=== PATIENT | female | born 1990 | race Caucasian/White ===

== ENCOUNTER 2016-09-22 13:11 | Emergency (ER) | payer OTHER ==
[2016-09-22] MEDS ORDERED: Nitroglycerin 0.4 MG Tab.SL SL ONE (13:23)
[2016-09-22] MEDS ORDERED: Aspirin 81 MG Tab.Chew PO ONE (13:23)
[2016-09-22] MEDS ORDERED: Sodium Chloride 0.9% 2.5 ML Syringe FLUSH PRN (13:23)
[2016-09-22] MEDS ORDERED: Sodium Chloride 0.9% 10 ML Syringe FLUSH PRN (13:23)
[2016-09-22 13:46] LABS: CHLORIDE,CL 109 mmol/L (98-110); SODIUM,NA 137 mmol/L (136-146)
--- NOTE | 2016-09-22 13:49 | EDM.PDOC ---
ED HPI GENERAL MEDICAL PROBLEM - General Chief Complaint: Cardiovascular Problem Stated Complaint: HEARTBEAT IRREGULAR, LT HAND FINGERS GOING NUMB Time Seen by Provider: 09/22/16 13:20 Source of Information: Reports: Patient History Limitations: Reports: No Limitations - History of Present Illness INITIAL COMMENTS - FREE TEXT/NARRATIVE: History of present illness: [26-year-old female comes in complaining of palpitations and pressure in her chest indicating that she has an extensive familial history of cardiac issues. Patient denies smoking but is such risk as well as obese.] Review of systems: As per history of present illness and below otherwise all systems reviewed and negative. Past medical history: As per history of present illness and as reviewed below otherwise noncontributory. Surgical history: As per history of present illness and as reviewed below otherwise noncontributory. Social history: No reported history of drug or alcohol abuse. Family history: As per history of present illness and as reviewed below otherwise noncontributory. Physical exam: HEENT: Atraumatic, normocephalic, pupils reactive, negative for conjunctival pallor or scleral icterus, mucous membranes moist, throat clear, neck supple, nontender, trachea midline. Lungs: Clear to auscultation, breath sounds equal bilaterally, chest nontender. Heart: S1S2, regular, negative for clicks, rubs, or JVD. Abdomen: Soft, nondistended, nontender. Negative for masses or hepatosplenomegaly. Negative for costovertebral tenderness. Pelvis: Stable nontender. Genitourinary: Deferred. Rectal: Deferred. Extremities: Atraumatic, negative for cords or calf pain. Neurovascular unremarkable. Neuro: Awake, alert, oriented. Cranial nerves II through XII unremarkable. Cerebellum unremarkable. Motor and sensory unremarkable throughout. Exam nonfocal. Patient noted to get hypertensive and tachycardic in the 120s with a narrow pulse pressure, patient given 1 nitroglycerin sublingual blood pressure decreased heart rate dropped into the 70s patient indicates she no longer felt any symptoms. Spoke with Dr. Powers who came to the ER evaluated the patient's chart and indicated the patient could have follow-up with him next week. Diagnostics: [Cardiac workup] Therapeutics: [IV] Impression: [Atypical chest pain] Plan: [Follow-up with cards on Sunday] Definitive disposition and diagnosis as appropriate pending reevaluation and review of above. - Related Data Allergies Allergy/AdvReac Type Severity Reaction Status Date / Time No Known Allergies Allergy Verified 09/22/16 13:14 Home Meds: Home Meds medroxyPROGESTERone [Depo-Provera] 0 mg IM ASDIRECTED 09/22/16 [History] Past Medical History - Past Health History Medical/Surgical History: Denies Medical/Surgical History Social & Family History - Family History Cardiac: Reports: Heart Failure, [place] Endocrine/Metabolic: Reports: Diabetes, type II - Tobacco Use Smoking Status *Q: Current Every Day Smoker Years of Tobacco use: 15 Packs/Tins Daily: 1 - Caffeine Use Caffeine Use: Reports: None - Recreational Drug Use Recreational Drug Use: Yes Drug Use in Last 12 Months: Yes Recreational Drug Type: Reports: Marijuana/Hashish Recreational Drug Use Frequency: Binges ED ROS GENERAL - Review of Systems Review Of Systems: See Below (See history of present illness) ED EXAM, GENERAL - Physical Exam Exam: See Below (History of present illness) Course - Vital Signs Last Recorded V/S: Last Vital Signs Temp 36.6 C 09/22/16 13:21 Pulse 98 09/22/16 15:29 Resp 15 09/22/16 15:29 BP 160/92 H 09/22/16 15:29 Pulse Ox 97 09/22/16 15:29 - Orders/Labs/Meds Orders: Active Orders 24 hr Category Date Time Status Cardiac Monitoring [RC] . DIRECTED Care 09/22/16 13:23 Active EKG Documentation Completion [RC] STAT Care 09/22/16 13:23 Active Pulse Oximetry [RC] ASDIRECTED Care 09/22/16 13:23 Active Chest 1V Frontal [CR] Stat Exams 09/22/16 13:23 Taken HCG QUALITATIVE,URINE [URCHEM] Stat Lab 09/22/16 13:23 Uncollected UA W/MICROSCOPIC [URIN] Stat Lab 09/22/16 13:23 Uncollected Sodium Chloride 0.9% [Saline Flush] Med 09/22/16 13:23 Active 10 ml FLUSH ASDIRECTED PRN Sodium Chloride 0.9% [Saline Flush] Med 09/22/16 13:23 Active 2.5 ml FLUSH ASDIRECTED PRN Saline Lock Insert [OM.PC] Stat Oth 09/22/16 13:23 Ordered Medication Orders Sodium Chloride (Saline Flush) 10 ml FLUSH ASDIRECTED PRN PRN Reason: Keep Vein Open Last Admin: 09/22/16 13:36 Dose: 10 ml Sodium Chloride (Saline Flush) 2.5 ml FLUSH ASDIRECTED PRN PRN Reason: Keep Vein Open Last Admin: 09/22/16 13:36 Dose: 2.5 ml Labs: Laboratory Tests 09/22/16 09/22/16 09/22/16 Range/Units 13:18 13:18 13:18 WBC 9.00 (4.0-11.0) K/uL RBC 5.23 (4.30-5.90) M/uL Hgb 14.8 (12.0-16.0) g/dL Hct 43.6 (36.0-46.0) % MCV 83.4 (80.0-98.0) fL MCH 28.3 (27.0-32.0) pg MCHC 33.9 (31.0-37.0) g/dL RDW Std Deviation 41.1 (28.0-62.0) fl RDW Coeff of Mandy 14 (11.0-15.0) % Plt Count 223 (150-400) K/uL MPV 10.90 (7.40-12.00) fL Neut % (Auto) 60.1 (48.0-80.0) % Lymph % (Auto) 35.1 (16.0-40.0) % Boyle % (Auto) 4.3 (0.0-15.0) % Eos % (Auto) 0.4 (0.0-7.0) % Baso % (Auto) 0.1 (0.0-1.5) % Neut # (Auto) 5.4 (1.4-5.7) K/uL Lymph # (Auto) 3.2 H (0.6-2.4) K/uL Boyle # (Auto) 0.4 (0.0-0.8) K/uL Eos # (Auto) 0.0 (0.0-0.7) K/uL Baso # (Auto) 0.0 (0.0-0.1) K/uL Nucleated RBC % 0.0 /100WBC Nucleated RBCs # 0 K/uL INR 1.01 (0.86-1.11) Sodium 137 (136-146) mmol/L Potassium 3.7 (3.5-5.1) mmol/L Chloride 109 (98-110) mmol/L Carbon Dioxide 19 L (21-31) mmol/L BUN 11 (6.0-23.0) mg/dL Creatinine 0.9 (0.6-1.5) mg/dL Est Cr Clr Drug Dosing 100.64 mL/min Estimated GFR (MDRD) > 60.0 ml/min Glucose 137 H (60-110) mg/dL Calcium 9.1 (8.8-10.8) mg/dL Total Bilirubin 0.6 (0.1-1.5) mg/dL AST 18 (5-40) IU/L ALT 20 (8-54) IU/L Alkaline Phosphatase 78 (40-150) Troponin I (0.0-0.29) NG/ML Total Protein 8.0 (6.0-8.0) g/dL Albumin 4.2 (3.5-5.0) g/dL Globulin 3.8 H (2.0-3.5) g/dL Albumin/Globulin Ratio 1.1 L (1.3-2.8) // Range/Units 13:18 WBC (4.0-11.0) K/uL RBC (4.30-5.90) M/uL Hgb (12.0-16.0) g/dL Hct (36.0-46.0) % MCV (80.0-98.0) fL MCH (27.0-32.0) pg MCHC (31.0-37.0) g/dL RDW Std Deviation (28.0-62.0) fl RDW Coeff of Mandy (11.0-15.0) % Plt Count (150-400) K/uL MPV (7.40-12.00) fL Neut % (Auto) (48.0-80.0) % Lymph % (Auto) (16.0-40.0) % Boyle % (Auto) (0.0-15.0) % Eos % (Auto) (0.0-7.0) % Baso % (Auto) (0.0-1.5) % Neut # (Auto) (1.4-5.7) K/uL Lymph # (Auto) (0.6-2.4) K/uL Boyle # (Auto) (0.0-0.8) K/uL Eos # (Auto) (0.0-0.7) K/uL Baso # (Auto) (0.0-0.1) K/uL Nucleated RBC % /100WBC Nucleated RBCs # K/uL INR (0.86-1.11) Sodium (136-146) mmol/L Potassium (3.5-5.1) mmol/L Chloride (98-110) mmol/L Carbon Dioxide (21-31) mmol/L BUN (6.0-23.0) mg/dL Creatinine (0.6-1.5) mg/dL Est Cr Clr Drug Dosing mL/min Estimated GFR (MDRD) ml/min Glucose (60-110) mg/dL Calcium (8.8-10.8) mg/dL Total Bilirubin (0.1-1.5) mg/dL AST (5-40) IU/L ALT (8-54) IU/L Alkaline Phosphatase (40-150) Troponin I < 0.10 (0.0-0.29) NG/ML Total Protein (6.0-8.0) g/dL Albumin (3.5-5.0) g/dL Globulin (2.0-3.5) g/dL Albumin/Globulin Ratio (1.3-2.8) Meds: Medications Generic Name Dose Route Start Last Admin Trade Name Freq PRN Reason Stop Dose Admin Sodium Chloride 10 ml 09/22/16 13:23 09/22/16 13:36 Saline Flush FLUSH 10 ml ASDIRECTED PRN Administration Keep Vein Open Sodium Chloride 2.5 ml 09/22/16 13:23 09/22/16 13:36 Saline Flush FLUSH 2.5 ml ASDIRECTED PRN Administration Keep Vein Open Discontinued Medications Generic Name Dose Route Start Last Admin Trade Name Freq PRN Reason Stop Dose Admin Aspirin 324 mg 09/22/16 13:23 09/22/16 13:35 Aspirin PO 09/22/16 13:24 324 mg ONETIME ONE Administration Nitroglycerin 0.4 mg 09/22/16 13:23 09/22/16 14:25 Nitrostat SL 09/22/16 13:24 0.4 mg ONETIME ONE Administration Departure - Departure Time of Disposition: 15:33 Disposition: Home, Self-Care 01 Condition: Good Clinical Impression: Palpitations, Hypertensive heart disease Forms: ED Department Discharge Additional Instructions: The following information is given to patients seen in the emergency department who are being discharged to home. This information is to outline your options for follow-up care. We provide all patients seen in our emergency department with a follow-up referral. The need for follow-up, as well as the timing and circumstances, are variable depending upon the specifics of your emergency department visit. If you don't have a primary care physician on staff, we will provide you with a referral. We always advise you to contact your personal physician following an emergency department visit to inform them of the circumstance of the visit and for follow-up with them and/or the need for any referrals to a consulting specialist. The emergency department will also refer you to a specialist when appropriate. This referral assures that you have the opportunity for follow-up care with a specialist. All of these measure are taken in an effort to provide you with optimal care, which includes your follow-up. Under all circumstances we always encourage you to contact your private physician who remains a resource for coordinating your care. When calling for follow-up care, please make the office aware that this follow-up is from your recent emergency room visit. If for any reason you are refused follow-up, please contact the [facility] Emergency Department at and asked to speak to the emergency department charge nurse. Follow-up with your appointment with cardiology Sunday Return to ED as needed as discussed - My Orders Last 24 Hours: My Active Orders 09/22/16 13:23 Cardiac Monitoring [RC] . DIRECTED EKG Documentation Completion [RC] STAT Pulse Oximetry [RC] ASDIRECTED Chest 1V Frontal [CR] Stat HCG QUALITATIVE,URINE [URCHEM] Stat UA W/MICROSCOPIC [URIN] Stat Sodium Chloride 0.9% [Saline Flush] 10 ml FLUSH ASDIRECTED PRN Sodium Chloride 0.9% [Saline Flush] 2.5 ml FLUSH ASDIRECTED PRN Saline Lock Insert [OM.PC] Stat - Assessment/Plan Last 24 Hours: My Active Orders 09/22/16 13:23 Cardiac Monitoring [RC] . DIRECTED EKG Documentation Completion [RC] STAT Pulse Oximetry [RC] ASDIRECTED Chest 1V Frontal [CR] Stat HCG QUALITATIVE,URINE [URCHEM] Stat UA W/MICROSCOPIC [URIN] Stat Sodium Chloride 0.9% [Saline Flush] 10 ml FLUSH ASDIRECTED PRN Sodium Chloride 0.9% [Saline Flush] 2.5 ml FLUSH ASDIRECTED PRN Saline Lock Insert [OM.PC] Stat
[2016-09-22 15:30] VITALS: BP 160/92
--- NOTE | 2016-09-25 09:09 | CR ---
EXAM DATE: 09/22/16 PATIENT'S AGE: 26 Patient: NURIA GONZALEZ Facility: [place], [place] Site . Site : 1990 Study: XRay Chest [id number]/[id number] 2:18:01 PM Ordering Physician: Doctor Isaacs Final Report: HISTORY: Chest pain. FINDINGS: AP portal chest radiograph demonstrates a normal cardiac silhouette. Pulmonary vasculature and yoko are normal. No lobar consolidation or pleural effusion is seen. No pneumothorax. IMPRESSION: No acute cardiopulmonary disease. Dictated by Betina Camejo MD @ 09/22/2016 2:51:51 PM Dictated by: Betina Camejo MD @ 09/22/2016 14:52:02 (Electronic Signature) Report Signed by Proxy. [facility]ITAL[facility]io
== END 2016-09-22 15:48 | disposition home or self-care (01) ==
LOC: MW.ED 13:11
DX: I11.9 Hypertensive heart disease without heart failure (principal); R00.2 Palpitations; R00.0 Tachycardia, unspecified; R07.89 Other chest pain; F17.210 Nicotine dependence, cigarettes, uncomplicated
CPT/HCPCS: 71010; 80053; 84484; 85025; 85610; 93005; 99285; A9270; 99282

== ENCOUNTER 2021-03-10 07:07 | Emergency (ER) | payer OTHER ==
--- NOTE | 2021-03-10 07:20 | EDM.PDOC ---
ED HPI GENERAL MEDICAL PROBLEM - General Chief Complaint: Upper Extremity Injury/Pain Stated Complaint: POSSIBLE BROKEN LEFT WRIST Time Seen by Provider: 03/10/21 07:11 - History of Present Illness INITIAL COMMENTS - FREE TEXT/NARRATIVE: History of present illness: [] Patient slipped on ice trying to get in her truck this morning. She fell and broke her left wrist. She has no other injury. She denies any medical complications. She last ate a sandwich at 2 AM and has nothing by mouth since. Review of systems: As per history of present illness and below otherwise all systems reviewed and negative. Past medical history: As per history of present illness and as reviewed below otherwise noncontributory. Surgical history: As per history of present illness and as reviewed below otherwise noncontributory. Social history: No reported history of drug or alcohol abuse. Family history: As per history of present illness and as reviewed below otherwise noncontributory. Physical exam: Constitutional - well developed, well-nourished and in no acute distress HEENT - normocephalic, no evidence of trauma - external nose and mouth normal - no mass in neck and no JVD - mucosae moist EYES - full EOM, PERRL, no icterus - no evidence of inflammation, injection, or drainage Respiratory - no respiratory distress, equal bilateral expansion Vascular-capillary refill good in the warm pink fingers of the left upper extr emity. Musculoskeletal tender deformity of left wrist. No gross deformity of long bones or joints - no tenderness, swelling or edema Neurologic -motor sensory intact in the distal left upper extremity. Alert and oriented times four - CN II-XII grossly intact - motor sensory and coordination symmetrically normal Psychiatric - appropriate mood and affect with normal thought content Hematologic - No petechiae or purpura - mucosa appropriate color and sclera not pale - normal nail bed color and refill Integument - no rash or evidence of trauma - normal turgor Diagnostics: [] Therapeutics: [] Impression: [] Plan: [] Definitive disposition and diagnosis as appropriate pending reevaluation and review of above. Left Arm Pain Score (Numeric/FACES): 7 - Related Data Allergies Allergy/AdvReac Type Severity Reaction Status Date / Time No Known Allergies Allergy Verified 03/10/21 07:12 Home Meds: Home Meds medroxyPROGESTERone [Depo-Provera] 0 mg IM ASDIRECTED 09/22/16 [History] Acetaminophen/oxyCODONE [Percocet 325-10 MG] 1 tab PO Q4H PRN #20 tab 03/10/21 [Rx] Rosuvastatin Calcium 40 mg PO 03/10/21 [History] Past Medical History - Past Health History Medical/Surgical History: Denies Medical/Surgical History Social & Family History - Family History Cardiac: Reports: Heart Failure, [place] Endocrine/Metabolic: Reports: Diabetes, type II - Caffeine Use Caffeine Use: Reports: None Review of Systems - Review of Systems Review Of Systems: Comprehensive ROS is negative, except as noted in HPI. ED EXAM, GENERAL - Physical Exam Exam: See Below Free Text/Narrative:: My physical exam is in the HPI Course - Vital Signs Last Recorded V/S: Last Vital Signs Temp 35.9 C L 03/10/21 07:13 Pulse 98 03/10/21 07:13 Resp 16 03/10/21 07:13 BP 159/67 H 03/10/21 07:13 Pulse Ox 97 03/10/21 07:13 - Orders/Labs/Meds Orders: Active Orders 24 hr Category Date Time Status Wrist 2V Lt [CR] Stat Exams 03/10/21 08:28 Taken DME for Discharge [COMM] Stat Oth 03/10/21 08:02 Ordered Meds: Medications Discontinued Medications Generic Name Dose Route Start Last Admin Trade Name Freq PRN Reason Stop Dose Admin Oxycodone/Acetaminophen 1 tab 03/10/21 07:31 03/10/21 07:53 Acetaminophen/Oxycodone 325-10 Mg Tab PO 03/10/21 07:32 1 tab ONETIME ONE Administration - Re-Assessments/Exams Free Text/Narrative Re-Assessment/Exam: 03/10/21 08:05 Motor sensory and capillary refill verified after wrist splint applied. Gentle manipulation used to try to correct the straightening slightly and opposed splint x-ray was taken. 03/10/21 08:39 Post reduction x-ray of the articular surfaces are in better position but the comminution makes it impossible to put everything into alignment. Discussed with orthopedist Dr Givens and he will see now 03/10/21 08:54 Departure - Departure Time of Disposition: 08:55 Disposition: Home, Self-Care 01 Condition: Good Clinical Impression: Fracture of radius and ulna - Discharge Information Prescriptions: Acetaminophen/oxyCODONE [Percocet 325-10 MG] 1 tab PO Q4H PRN #20 tab PRN Reason: Pain (Severe 7-10) Instructions: Wrist Fracture Treated With Immobilization, [id number] Referrals: PCP,None [Primary Care Provider] - Forms: ED Department Discharge Additional Instructions: Your [facility] for pain went to [facility]. Return immediately if your fingers are numb or pale Dr. Givens wants to see you now. [facility] [address], [address] [place] [address] The following information is given to patients seen in the emergency department who are being discharged to home. This information is to outline your options for follow-up care. We provide all patients seen in our emergency department with a follow-up referral. The need for follow-up, as well as the timing and circumstances, are variable depending upon the specifics of your emergency department visit. If you don't have a primary care physician on staff, we will provide you with a referral. We always advise you to contact your personal physician following an emergency department visit to inform them of the circumstance of the visit and for follow-up with them and/or the need for any referrals to a consulting specialist. The emergency department will also refer you to a specialist when appropriate. This referral assures that you have the opportunity for follow-up care with a specialist. All of these measure are taken in an effort to provide you with optimal care, which includes your follow-up. Under all circumstances we always encourage you to contact your private phys ician who remains a resource for coordinating your care. When calling for follow-up care, please make the office aware that this follow-up is from your recent emergency room visit. If for any reason you are refused follow-up, please contact the [facility] Emergency Department at and asked to speak to the emergency department charge nurse. Sepsis Event Note (ED) - Evaluation Sepsis Screening Result: No Definite Risk - Focused Exam Vital Signs: Vital Signs Temp Pulse Resp BP Pulse Ox 03/10/21 07:13 35.9 C L 98 16 159/67 H 97 - My Orders Last 24 Hours: My Active Orders 03/10/21 08:02 DME for Discharge [COMM] Stat 03/10/21 08:28 Wrist 2V Lt [CR] Stat - Assessment/Plan Last 24 Hours: My Active Orders 03/10/21 08:02 DME for Discharge [COMM] Stat 03/10/21 08:28 Wrist 2V Lt [CR] Stat
[2021-03-10] MEDS ORDERED: Acetaminophen/oxyCODONE 325-10 MG Tab PO ONE (07:31)
--- NOTE | 2021-03-10 08:01 | CR ---
Indication: Trauma Technique: Three images of the left wrist were acquired Comparison: None Findings: Impacted comminuted fracture of the distal left radius. This is associated with dorsal angulation deformity. Ulnar styloid fracture. Impression: Fracture of the distal left radius and ulna. Dictated by Judson Esquivel MD @ 03/10/2021 8:00:36 AM (Electronically Signed)
--- NOTE | 2021-03-10 08:55 | CR ---
Indication: Status post closed reduction Technique: Two images of the left wrist were acquired through cast. Comparison: Earlier the same day Findings: Re-demonstration of a distal left radius and ulna fracture. There is improved anatomic alignment status post closed reduction. There remains mild impaction and dorsal angulation of the distal radial component to the fracture Impression: Improved anatomic alignment status post closed reduction. Dictated by Judson Esquivel MD @ 03/10/2021 8:54:45 AM (Electronically Signed)
[2021-03-10 09:11] VITALS: BP 140/60; PULSE 88
== END 2021-03-10 09:00 | disposition home or self-care (01) ==
LOC: MW.ED 07:07
DX: S52.502A Unspecified fracture of the lower end of left radius, initial encounter for closed fracture (principal); S52.602A Unspecified fracture of lower end of left ulna, initial encounter for closed fracture; Z79.899 Other long term (current) drug therapy; W01.0XXA Fall on same level from slipping, tripping and stumbling without subsequent striking against object, initial encounter
CPT/HCPCS: 25605; 73100; 73110; 99283; A9270

== ENCOUNTER 2022-02-20 06:39 | Day surgery (SDC) | payer OTHER ==
[~2022-02-20 06:39] MED LIST: Lactated Ringers 1,000 ML IV SCH
[2022-02-20] MEDS ORDERED: Bupivacaine 0.5% 10 ML SDV ONE (07:26)
[2022-02-20] MEDS ORDERED: Dexmedetomidine 200 MCG/2 ML SDV ONE (07:30)
[2022-02-20] MEDS ORDERED: Propofol 200 MG/20 ML SDV ONE ×2 (07:30→08:32)
[2022-02-20] MEDS ORDERED: fentaNYL 100 MCG/2 ML SDV ONE (07:30)
[2022-02-20] MEDS ORDERED: Water For Injection, Sterile 20 ML ONE (07:33)
[2022-02-20] MEDS ORDERED: Lidocaine 2% 5 ML SDV ONE (07:37)
[2022-02-20] MEDS ORDERED: Ondansetron 4 MG/2 ML SDV ONE (08:13)
[2022-02-20] MEDS ORDERED: Ondansetron 4 MG/2 ML SDV IVPUSH PRN (08:26)
[2022-02-20] MEDS ORDERED: Albuterol 0.083% 2.5 MG/3 ML Neb Soln NEB PRN (08:26)
[2022-02-20] MEDS ORDERED: fentaNYL 50 MCG/ML SDV IVPUSH PRN (08:26)
[2022-02-20] MEDS ORDERED: Morphine 2 MG/ML SYRINGE IVPUSH PRN (08:26)
[2022-02-20] MEDS ORDERED: HYDROmorphone 1 MG/ML Syringe IVPUSH PRN (08:26)
[2022-02-20] MEDS ORDERED: Naloxone 0.4 MG/ML SDV IVPUSH PRN (08:26)
[2022-02-20] MEDS ORDERED: Metoclopramide 10 MG/2 ML SDV IVPUSH PRN (08:26)
[2022-02-20 08:48] VITALS: PULSE 73
[2022-02-20] MEDS ORDERED: Acetaminophen/oxyCODONE 325-5 MG Tab PO PRN (08:49)
[2022-02-20 09:29] VITALS: BP 108/58
== END 2022-02-20 09:20 | disposition home or self-care (01) ==
LOC: MW.SDS 06:39
PROVIDERS: ATTEND Obstetrics & Gynecology
DX: N90.7 Vulvar cyst (principal); I10 Essential (primary) hypertension; E78.00 Pure hypercholesterolemia, unspecified; J45.909 Unspecified asthma, uncomplicated; E66.9 Obesity, unspecified; F41.9 Anxiety disorder, unspecified; K21.9 Gastro-esophageal reflux disease without esophagitis; Z79.899 Other long term (current) drug therapy; Z98.890 Other specified postprocedural states; Z91.048 Other nonmedicinal substance allergy status; F17.210 Nicotine dependence, cigarettes, uncomplicated
CPT/HCPCS: 11423; 36415; 81025; 85025; J2704; J3010; J3490; J7030; J7120; J2405

== ENCOUNTER 2023-06-05 08:22 | Emergency (ER) | payer OTHER ==
[2023-06-05] MEDS: predniSONE 10 MG Tab PO ONE (09:04)
[2023-06-05] MEDS: Azithromycin 250 MG Tab PO ONE (09:04)
[2023-06-05 09:50] LABS: CORONAVIRUS COVID-19 NAA NEGATIVE (NEGATIVE); INFLUENZA A NAA NEGATIVE (NEGATIVE); INFLUENZA B NAA NEGATIVE (NEGATIVE); RESPIRATORY SYNCYTIAL VIR NAA NEGATIVE (NEGATIVE)
[2023-06-05 09:55] VITALS: BP 144/78; PULSE 70
== END 2023-06-05 10:08 | disposition home or self-care (01) ==
LOC: MW.ED 08:22
DX: J06.9 Acute upper respiratory infection, unspecified (principal); J45.909 Unspecified asthma, uncomplicated; I10 Essential (primary) hypertension; K21.9 Gastro-esophageal reflux disease without esophagitis; E66.9 Obesity, unspecified; Z68.35 Body mass index [BMI] 35.0-35.9, adult; Z75.8 Other problems related to medical facilities and other health care; Z91.048 Other nonmedicinal substance allergy status; Z79.899 Other long term (current) drug therapy
CPT/HCPCS: 0241U; 71046; 87651; 99285; A9270; 99283

== ENCOUNTER 2024-03-06 02:26 | Inpatient (IN) | payer OTHER ==
[2024-03-06] MEDS ORDERED: Sodium Chloride 0.9% 2.5 ML Syringe FLUSH PRN (23:02)
[2024-03-06] MEDS ORDERED: Carboprost Tromethamine 250 MCG/1 mL Vial IM PRN (23:02)
[2024-03-06] MEDS ORDERED: Tranexamic Acid in NACL,ISO-OS 1,000 MG in Premix Bag 1 BAG IV PRN (23:02)
[2024-03-06] MEDS ORDERED: Sodium Chloride 0.9% 10 ML Syringe FLUSH PRN (23:02)
[2024-03-06] MEDS ORDERED: Terbutaline 1 MG/ML SDV SUBCUT PRN (23:02)
[2024-03-06] MEDS ORDERED: Lidocaine 1% 50 ML MDV INJECT PRN (23:02)
[2024-03-06] MEDS ORDERED: Water For Irrigation,Sterile 1,000 ML Container IRR PRN (23:02)
[2024-03-06] MEDS ORDERED: Butorphanol 2 MG/ML SDV IVPUSH PRN (23:02)
[2024-03-06] MEDS ORDERED: Sodium Chloride 0.9% 20 ML SDV IV PRN (23:02)
[2024-03-06] MEDS ORDERED: Misoprostol 200 MCG Tab PO PRN (23:02)
[2024-03-06] MEDS ORDERED: Methylergonovine 0.2 MG/1 ML Amp IM PRN (23:02)
[2024-03-06] MEDS ORDERED: Oxytocin/0.9 % Sodium Chloride 30 UNIT/500 ML BAG IV SCH (23:15)
[2024-03-06] MEDS: Misoprostol 25 MCG (1/4 of 100 MCG) Tab VAG PRN (23:36)
[2024-03-06 23:40] LABS: HEMOGLOBIN 13.3 g/dL (12.0-16.0); MEAN CORPUSCULAR HGB CONC 33.3 g/dL (32.0-36.0); MEAN CORPUSCULAR VOLUME 84.2 fL (83.0-99.0); MEAN PLATELET VOLUME 12.3 fL (9.4-12.3); PLATELET COUNT,PLT 187 K/uL (150-400); RED BLOOD CELL COUNT 4.75 M/uL (4.10-5.30); WHITE BLOOD CELL COUNT,WBC 11.06 K/uL (3.9-11.3)
[2024-03-07 05:10] LABS: A/G RATIO 0.6 (0.9-1.6); ALBUMIN 2.3 g/dL (3.4-5.0); BILIRUBIN TOTAL 0.1 mg/dL (0.2-1.0); CALCIUM 8.7 mg/dL (8.5-10.1); CARBON DIOXIDE,CO2 21.2 mmol/L (21.0-32.0); CREATININE 0.7 mg/dL (0.6-1.0); EST CRCL DRUG DOSING (CG) 123.34 mL/min; POTASSIUM,K 4.2 mmol/L (3.5-5.1); PROTEIN TOTAL,TP 6.3 g/dL (6.4-8.2)
[2024-03-07] MEDS ORDERED: ePHEDrine 50 MG/ML SDV IVPUSH PRN (07:22)
[2024-03-07] MEDS ORDERED: Phenylephrine HCl In 0.9% NaCl 1 MG/10 ML Syringe IVPUSH PRN (07:22)
[2024-03-07] MEDS ORDERED: dexmedeTOMIDine HCl 200 MCG/2 ML SDV EPIDUR SCH (07:30)
[2024-03-07] MEDS: Lactated Ringers 1,000 ML IV SCH (07:30)
[2024-03-07] MEDS ORDERED: Sodium Chloride 0.9% 20 ML SDV IV PRN (12:12)
[2024-03-07] MEDS ORDERED: Labetalol 100 MG/20 ML MDV IVPUSH PRN (12:12)
[2024-03-07] MEDS ORDERED: Sodium Chloride 0.9% 10 ML Syringe FLUSH PRN (12:12)
[2024-03-07] MEDS ORDERED: Calcium Gluconate 10% 1 GM/10 ML SDV IV PRN (12:12)
[2024-03-07] MEDS ORDERED: Sodium Chloride 0.9% 2.5 ML Syringe FLUSH PRN (12:12)
[2024-03-07] MEDS: Labetalol 100 MG/20 ML MDV ONE (12:17)
[2024-03-07] MEDS: Magnesium Sulfate/Water Premix 4 GM in Premix Bag 1 BAG IV ONE (12:39)
[2024-03-07] MEDS: Magnesium Sulfate/Water Premix 20 GM/500 ML BAG IV SCH (13:01)
[2024-03-07] MEDS: Oxytocin/0.9 % Sodium Chloride 30 UNIT/500 ML BAG IV SCH (13:54)
[2024-03-07] MEDS: Ropivacaine HCl/PF 400 MG in Premix Bag 1 BAG EPIDUR SCH (19:29)
[2024-03-07] MEDS: Ondansetron 4 MG/2 ML SDV IVPUSH PRN (23:56)
[2024-03-08] MEDS ORDERED: Ibuprofen 800 MG Tab PO PRN (02:49)
[2024-03-08] MEDS ORDERED: oxyCODONE 5 MG Tab PO PRN (02:49)
[2024-03-08] MEDS ORDERED: Docusate Sodium 100 MG Cap PO PRN (02:49)
[2024-03-08] MEDS ORDERED: Acetaminophen 500 MG Tab PO PRN (02:49)
[2024-03-08 03:45] LABS: PH,UMBILICAL ARTERIAL 7.281 (7.18-7.38)
[2024-03-08 03:46] LABS: PH,UMBILICAL VENOUS 7.329 (7.25-7.45)
[2024-03-08] MEDS: Benzocaine/Menthol 20%-0.5% Spray 78 GM Cannister TOP PRN (04:25)
[2024-03-08] MEDS: Witch Hazel Medicated Pads 40/Jar TOP PRN (04:26)
[2024-03-08 12:46] LABS: HEMATOCRIT 37.7 % (37.0-47.0); HEMOGLOBIN 12.7 g/dL (12.0-16.0); MEAN CORPUSCULAR HEMOGLOBIN 27.7 pg (28.0-32.0); MEAN CORPUSCULAR HGB CONC 33.7 g/dL (32.0-36.0); MEAN CORPUSCULAR VOLUME 82.3 fL (83.0-99.0); MEAN PLATELET VOLUME 11.7 fL (9.4-12.3); PLATELET COUNT,PLT 172 K/uL (150-400); RED BLOOD CELL COUNT 4.58 M/uL (4.10-5.30); WHITE BLOOD CELL COUNT,WBC 15.09 K/uL (3.9-11.3)
[2024-03-08] MEDS: Lanolin 100% Cream 7 GM Tube TOP PRN (19:43)
[2024-03-09] MEDS: NIFEdipine 30 MG Tab.ER PO SCH (09:12)
[2024-03-09 19:31] VITALS: BP 151/87; PULSE 85
== END 2024-03-09 20:00 | disposition home or self-care (01) | DRG 807 ==
LOC: MW.OB 02:26 → OBSVTOIN 03-08 02:26 → MW.OB 03-08 06:22
PROVIDERS: ADMIT Obstetrics & Gynecology; ATTEND Obstetrics & Gynecology
PROC: 10E0XZZ Delivery of Products of Conception, External Approach (ICD-10-PCS; principal; 2024-03-08)
PROC: 0HQ9XZZ Repair Perineum Skin, External Approach (ICD-10-PCS; 2024-03-08)
PROC: 3E0DXGC Introduction of Other Therapeutic Substance into Mouth and Pharynx, External Approach (ICD-10-PCS; 2024-03-08)
PROC: 0U7C7ZZ Dilation of Cervix, Via Natural or Artificial Opening (ICD-10-PCS; 2024-03-08)
PROC: 3E0R3BZ Introduction of Anesthetic Agent into Spinal Canal, Percutaneous Approach (ICD-10-PCS; 2024-03-08)
PROC: 00HU33Z Insertion of Infusion Device into Spinal Canal, Percutaneous Approach (ICD-10-PCS; 2024-03-08)
DX: O99.214 Obesity complicating childbirth (principal); Z37.0 Single live birth; O99.334 Smoking (tobacco) complicating childbirth; F17.210 Nicotine dependence, cigarettes, uncomplicated; O70.0 First degree perineal laceration during delivery; O99.52 Diseases of the respiratory system complicating childbirth; O77.0 Labor and delivery complicated by meconium in amniotic fluid; J45.909 Unspecified asthma, uncomplicated; O14.94 Unspecified pre-eclampsia, complicating childbirth; Z3A.39 39 weeks gestation of pregnancy
CPT/HCPCS: 36415; 51702; 59025; 59409; 80053; 82803; 83735; 85027; 86592; 86850; 86900; 86901; A9270-GY; J1920; J2405; J2590; J2795; J3475; J7120